=== PATIENT | female | born 1975 ===

== ENCOUNTER 2018-05-19 21:16 | Emergency (ER) | payer OTHER ==
[2018-05-19 21:16] VITALS: BMI 20.9
[2018-05-19 21:31] VITALS: BP 132/81; PULSE 89; RESP 20; TEMP 98; O2SAT 100
--- NOTE | 2018-05-19 22:10 | C.PDOC ---
History Of Present Illness 42 year old female with Hx of recurrent sciatica presents with pain radiating down her right buttock to her thigh and lower leg. Patient states she sits for long hours and believes this may be causing her pain. Patient has not seen an orthopedist for this problem. No other complaints. Time Seen by Provider: 05/19/18 21:33 Chief Complaint (Nursing): Lower Extremity Problem/Injury History Per: Patient History/Exam Limitations: no limitations Onset/Duration Of Symptoms: Hrs Current Symptoms Are (Timing): Still Present Quality Of Discomfort: Unable To Describe Previous Symptoms: Other (Sciatica) Associated Symptoms: None Exacerbating Factor(s): Sitting Recent travel outside of the [place]: No Past Medical History Reviewed: Historical Data, Nursing Documentation, Vital Signs Vital Signs: Last Vital Signs Temp 98 F 05/19/18 21:27 Pulse 89 05/19/18 21:27 Resp 20 05/19/18 21:27 BP 132/81 05/19/18 21:27 Pulse Ox 100 05/19/18 21:27 - Medical History PMH: Anxiety, Back Problems, Hypercholesterolemia, Hyperthyroidism, Hypothyroidism, Migraine Family History: States: Unknown Family Hx - Social History Hx Tobacco Use: No Hx Alcohol Use: No Hx Substance Use: No - Immunization History Hx Tetanus Toxoid Vaccination: No Hx Influenza Vaccination: No Hx Pneumococcal Vaccination: No Review Of Systems Constitutional: Negative for: Fever, Chills Eyes: Negative for: Pain, Redness ENT: Negative for: Mouth Swelling Cardiovascular: Negative for: Chest Pain, Palpitations Respiratory: Negative for: Cough, Shortness of Breath Gastrointestinal: Negative for: Nausea, Vomiting, Diarrhea Genitourinary: Negative for: Dysuria, Hematuria Musculoskeletal: Positive for: Other (Right buttock pain radiating down thigh to lower leg). Negative for: Back Pain Skin: Negative for: Rash Neurological: Negative for: Weakness, Numbness, Dizziness Physical Exam - Physical Exam Appears: Well, Non-toxic, No Acute Distress Skin: Normal Color, Warm, No Rash Head: Atraumatic, Normacephalic Eye(s): bilateral: Normal Inspection, PERRL, EOMI Oral Mucosa: Moist Chest: Symmetrical Respiratory: No Accessory Muscle Use, Other (Normal inspiratory effort) Gastrointestinal/Abdominal: Soft, No Distention Back: Straight Leg Raising (Right leg positive) Extremity: Normal ROM (x4), Other (Tenderness to right gluteus and posterior thigh) Neurological/Psych: Oriented x3, Normal Speech, Normal Cranial Nerves (Grossly intact), Normal Motor, Normal Sensation Gait: Steady ED Course And Treatment O2 Sat by Pulse Oximetry: 100 (Room air) Pulse Ox Interpretation: Normal Medical Decision Making Medical Decision Making: Motrin and tramadol given, patient stable, for dc, ortho referral given. Disposition Counseled Patient/Family Regarding: Diagnosis, Need For Followup, Rx Given - Disposition Referrals: Nichole Perry MD [Staff Provider] - Disposition: HOME/ ROUTINE Disposition Time: 22:10 Condition: STABLE Prescriptions: Ibuprofen [Motrin Tab] 800 mg PO TID PRN #21 tab PRN Reason: Pain, Moderate (4-7) traMADol [Ultram] 50 mg PO TID PRN #15 tab PRN Reason: Pain, Severe (8-10) Instructions: Sciatica (DC) Forms: General Discharge Instructions, [facility] ([place]), Work Excuse - Clinical Impression Clinical Impression: Sciatica - PA / MANAGER OPERATING / Resident Statement MD/DO has reviewed & agrees with the documentation as recorded. - Scribe Statement The provider has reviewed the documentation as recorded by the Scribmahsa Gooden All medical record entries made by the Scribe were at my direction and personally dictated by me. I have reviewed the chart and agree that the record accurately reflects my personal performance of the history, physical exam, medical decision making, and the department course for this patient. I have also personally directed, reviewed, and agree with the discharge instructions and disposition.
== END 2018-05-19 22:37 | disposition home or self-care (01) ==
LOC: C.ER 21:16
DX: M54.30 Sciatica, unspecified side (principal); E78.00 Pure hypercholesterolemia, unspecified